=== PATIENT | female | born 2000 | race Caucasian/White ===

== ENCOUNTER 2018-01-31 17:52 | Emergency (ER) | payer SELFPAY ==
[~2018-01-31] VITALS: Ht 167.6 cm; Wt 50.8 kg
[~2018-01-31 17:52] MED LIST: AMOX500C2 PO
--- OUTSIDE RECORDS SUMMARY | 2018-01-31 17:57 | XMS REPORT | Continuity of Care Document ---
Author Author [facility] of [facility] Address Unknown Phone Unavailable Allergies There is no data. Medications There is no data. Problems Date Dx Coded Attending Type Code Diagnosis Diagnosed By 12/12/2011 BARI CAMACHO MD V05.4 VARICELLA DX 12/12/2011 BARI CAMACHO MD V06.1 TDAP DX 12/12/2011 V05.4 VARICELLA DX 12/12/2011 V06.1 TDAP DX 12/12/2011 YURI KESSLER MD V05.4 VARICELLA DX 12/12/2011 YURI KESSLER MD V06.1 TDAP DX 12/12/2011 RAISA SANTIAGO APRNYL A V05.4 VARICELLA DX 12/12/2011 PAMELA DENG GERMAINE A V06.1 TDAP DX 12/12/2011 PAMELA DENG GERMAINE A V05.4 VARICELLA DX 12/12/2011 PAMELA DENG, GERMAINE A V06.1 TDAP DX 01/01/2012 BARI CAMACHO MD 132.0 PEDICULUS CAPITIS (HEAD LOUSE) 01/01/2012 132.0 PEDICULUS CAPITIS (HEAD LOUSE) 01/01/2012 YURI KESSLER MD 132.0 PEDICULUS CAPITIS (HEAD LOUSE) 01/01/2012 GERMAINE SANTIAGO APRN A 132.0 PEDICULUS CAPITIS (HEAD LOUSE) 01/01/2012 RAISA SANTIAGO APRNYL A 132.0 PEDICULUS CAPITIS (HEAD LOUSE) 07/06/2012 924.20 CONTUSION OF FOOT 07/06/2012 YURI KESSLER MD 924.20 CONTUSION OF FOOT 07/06/2012 GERMAINE SANTIAGO APRN 924.20 CONTUSION OF FOOT 07/06/2012 GERMAINE SANTIAGO APRN A 924.20 CONTUSION OF FOOT 03/29/2013 YURI KESSLER MD 465.9 UPPER RESPIRATORY INFECTION 03/29/2013 GERMAINE SANTIAGO APRN 465.9 UPPER RESPIRATORY INFECTION 03/29/2013 GERMAINE SANTIAGO APRN 465.9 UPPER RESPIRATORY INFECTION 12/03/2013 GERMAINE SANTIAGO APRN V70.3 SPORTS PHYSICAL 12/03/2013 GERMAINE SANTIAGO APRN V70.3 SPORTS PHYSICAL 01/19/2014 GERMAINE SANTIAGO APRN 784.0 HEADACHE 01/19/2014 GERMAINE SANTIAGO APRN 959.01 OTHER AND UNSPECIFIED INJURY TO HEAD Procedures Code [place] [address] XRAY FOOT RIGHT 2 VIEWS 07/08/2012 31882 VISUAL ACUITY SCREEN 12/05/2013 Results There is no data. Encounters ACCT No. Visit Date/Time Discharge Status Pt. Type Provider Facility Loc./Unit Complaint [id number] 01/19/2014 13:43:00 01/19/2014 23:59:59 CLS Outpatient GERMAINE SANTIAGO APRN [id number] 12/03/2013 11:20:00 12/03/2013 23:59:59 CLS Outpatient GERMAINE SANTIAGO APRN [id number] 03/29/2013 14:55:00 03/29/2013 23:59:59 CLS Outpatient YURI KESSLER MD [id number] 07/06/2012 15:48:00 07/06/2012 23:59:59 CLS Outpatient [id number] 01/01/2012 10:50:00 01/01/2012 23:59:59 CLS Outpatient BARI CAMACHO MD [id number] 07/25/2013 00:10:00 07/25/2013 02:27:00 DIS Emergency
--- NOTE | 2018-01-31 18:20 | ED EENT ---
History of Present Illness General Chief Complaint: Cough/Cold/Flu Symptoms Stated Complaint: SORE THROAT,FEVER,BODY ACHE Nursing Triage Note: ARRIVED VIA AMB TO ROOM 05. COMPLAINS OF BODY ACHES, SORE THROAT, AND FEVER. STATES SHE TOOK TYLENOL AT 0700 TODAY. Source: patient History of Present Illness Date Seen by Provider: Jan 31, 2018 Time Seen by Provider: 18:06 Initial Comments PT ARRIVES VIA POV FROM HOME C/O SORE THROAT SINCE Friday01/29/18 C/O SUBJECTIVE FEVER, SWEATS, CHILLS C/O BODY ACHES NO NASAL CONGESTION OR COUGH NO NAUSEA/VOMITING NO KNOWN SICK CONTACTS TOOK TYLENOL COLD AND SINUS AT 0700 THIS AM PCP: STEPHANIE Allergies and Home Medications Allergies Coded Allergies: No Known Drug Allergies (Unverified , 07/25/13) Home Medications Amoxicillin 500 Mg Capsule, 2 EACH PO BID Prescribed by: KATHLEEN WELLS on 07/25/13 0220 Patient Home Medication List Home Medication List Reviewed: Yes Review of Systems Review of Systems Constitutional: see HPI, chills, diaphoresis, fever Eyes: No Symptoms Reported Ears: No Symptoms Reported Nose: no symptoms reported Mouth: no symptoms reported Throat: see HPI, pain; denies neck stiffness, denies muffled; painful swallowing; denies difficulty with fluids Respiratory: no symptoms reported Cardiovascular: no symptoms reported Gastrointestinal: no symptoms reported : No LMP: Jan 10, 2018 (NO CONTROL) Musculoskeletal: see HPI, other (BODY ACHES) Past Lowwhvz-Akyavr-Ahbmdw Hx Patient Social History Alcohol Use: Denies Use Recreational Drug Use: No Smoking Status: Current Everyday Smoker (1 PPD) Type Used: Cigarettes Recent Foreign Travel: No Contact w/Someone Who Travel: No Recent Infectious Disease Expo: No Past Medical History Surgeries: No Respiratory: No Cardiac: No Neurological: No Reproductive Disorders: No Sexually Transmitted Disease: No HIV/AIDS: No Gastrointestinal: No Musculoskeletal: No Endocrine: No HEENT: No Cancer: No Psychosocial: No Integumentary: No Blood Disorders: No Adverse Reaction/Blood Tranf: No Physical Exam Vital Signs Vital Signs - First Documented 01/31/18 17:59 Temp 100.7 Pulse 104 Resp 16 B/P (MAP) 132/78 O2 Delivery Room Air Height, Weight, BMI Height: 5'6.00" Weight: 112lbs. oz. 50.271726fk; 14.06 BMI Method:Stated General Appearance: no apparent distress, thin Eyes: bilateral eye normal inspection, bilateral eye PERRL, bilateral eye EOMI Ears: bilateral ear auricle normal, bilateral ear canal normal Nose: normal inspection Mouth/Throat: tonsillar exudate, tonsillar swelling (+2$); No trismus, No uvula swelling, No voice changes Neck: non-tender, full range of motion, supple, normal inspection, lymphadenopathy (R) (MILD ANTERIOR), lymphadenopathy (L) (MILD ANTERIOR) Cardiovascular: normal peripheral pulses, regular rate, rhythm, no edema, no JVD, no murmur Respiratory: normal breath sounds, no respiratory distress, no accessory muscle use Gastrointestinal: normal bowel sounds, non tender, soft, no organomegaly 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 Referrals: [facility] (PCP/Family) Primary Care Physician Patient Instructions: Sore Throat, Adult (DC) Add. Discharge Instructions: TYLENOL 1 GRAM AND MOTRIN 800 MG 4 TIMES A DAY FOR PAIN OR FEVER FREQUENT SALT WATER GARGLES LOTS OF FLUIDS FOLLOW UP WITH YOUR DR IN 2-3 DAYS IF NO BETTER All discharge instructions reviewed with patient and/or family. Voiced understanding. Scripts Amoxicillin (Amoxicillin) 875 Mg Tablet 875 MG PO BID for INFECTION, #20 TAB Prov: SIRENA GÓMEZ DO 01/31/18 Work/School Note: Work Release Form Date Seen in the Emergency Department: Jan 31, 2018 Return to Work: Feb 02, 2018 Restrictions: No Restrictions SIRENA GÓMEZ DO Jan 31, 2018 18:19
[2018-01-31] MEDS ORDERED: RX-AMOXICILLIN 250 MG CAP PPK #3 PO STA (18:37)
[2018-01-31] MEDS ORDERED: AMOX875T2 PO (18:42)
[2018-01-31] MEDS ORDERED: RX-AMOXICILLIN 500 MG CAP #3 PPK PO ONE (18:59)
[2018-01-31] MEDS ORDERED: RX-AMOXICILLIN 500 MG CAP #3 PPK PO STA (19:09)
== END 2018-01-31 19:04 | disposition home or self-care (01) ==
LOC: EDUNIT# 17:52 → ER 17:53
DX: J02.9 Acute pharyngitis, unspecified (principal); F17.210 Nicotine dependence, cigarettes, uncomplicated
CPT/HCPCS: 87430; 99284

== ENCOUNTER 2018-12-21 21:41 | Emergency (ER) | payer MEDICAID ==
[~2018-12-21] VITALS: Ht 170.1 cm; Wt 76.6 kg
[~2018-12-21 21:41] MED LIST changes: +AMOX875T2 PO
--- NOTE | 2018-12-21 22:07 | ED Lower Extremity ---
General Chief Complaint: Laceration Stated Complaint: FALL - LEFT LEG LAC Source: patient History of Present Illness Date Seen by Provider: Dec 21, 2018 Time Seen by Provider: 21:55 Initial Comments PT ARRIVES VIA POV FROM HOME STATES SHE TRIPPED AND FELL, LANDING ON KNEES ON A LARGE METAL FLOOR VENT--OCCURRED 20 MINUTES AGO HAS LACERATION TO LEFT KNEE NO OTHER INJURIES OR AREAS OF PAIN PT IS 36 WEEKS --EDC 01/10/29 NO ABDOMINAL INJURY OR PAIN NO VAGINAL BLEEDING. 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 Jennifer KINGSLEY Allergies and Home Medications Allergies Coded Allergies: No Known Drug Allergies (Unverified , 07/25/13) Home Medications Amoxicillin 500 Mg Capsule, 2 EACH PO BID Prescribed by: KATHLEEN WELLS on 07/25/13 0220 Amoxicillin 875 Mg Tablet, 875 MG PO BID Prescribed by: SIRENA GÓMEZ on 01/31/18 1842 Cephalexin 500 Mg Capsule, 500 MG PO QID Prescribed by: SIRENA GÓMEZ on 12/21/18 2300 Patient Home Medication List Home Medication List Reviewed: Yes Review of Systems Constitutional: no symptoms reported : Yes Expected Date of Delivery: Jan 10, 2019 Musculoskeletal: see HPI Skin: see HPI Psychiatric/Neurological: No Symptoms Reported Past Qrqwuoc-Kaypwr-Xrnfmz Hx Patient Social History Smoking Status: Current Everyday Smoker Type Used: Cigarettes Recent Foreign Travel: No Contact w/Someone Who Travel: No Immunizations Up To Date Tetanus Booster (TDap): Unknown Past Medical History Surgeries: No Respiratory: No Cardiac: No Neurological: No Reproductive Disorders: No Sexually Transmitted Disease: No HIV/AIDS: No Gastrointestinal: No Musculoskeletal: No Endocrine: No HEENT: No Cancer: No Psychosocial: No Integumentary: No Blood Disorders: No Adverse Reaction/Blood Tranf: No Physical Exam Vital Signs Vital Signs - First Documented 12/21/18 21:50 Temp 37.7 Pulse 109 Resp 22 B/P (MAP) 149/85 Pulse Ox 98 O2 Delivery Room Air Capillary Refill : Height, Weight, BMI Height: 5'6.00" Weight: 112lbs. oz. 50.440677kv; 14.06 BMI Method:Stated General Appearance: WD/WN, no apparent distress, other (CRYING, VERY ANXIOUS) Neck: normal inspection Cardiovascular: normal peripheral pulses, regular rate, rhythm Respiratory: chest non-tender, normal breath sounds Gastrointestinal: non tender, soft, other (GRAVID UTERUS-TERM/NEAR TERM) Back: normal inspection Hips: bilateral hip non-tender, bilateral hip normal inspection Legs: bilateral leg non-tender, bilateral leg normal inspection Knees: right knee non-tender, right knee normal inspection; left knee soft tissue tenderness, left knee other (NO BONY TENDERNESS. HAS A LARGE VERY IRREGULAR, GAPING, C-SHAPED FLAP LACERATION TO LEFT KNEE, WITH SKIN NEARLY COMPLETELY AVULSED. 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, no motor/sensory deficits, alert, normal mood/affect, oriented x 3 Skin: normal color, warm/dry Procedures/Interventions Wound Location: Lower Extremities (LEFT KNEE) Wound Length (cm): 15 Wound's Depth, Shape: irregular, stellate, sub Q Wound Explored: foreign body removed (SMALL AMOUNT OF DIRT ) Irrigated w/ Saline (ccs): 2000 Betadine Prep?: No (BETASEPT) Anesthesia: Lidocaine w/ Epi (2%) Staple Repair: Stapler 35W Suture: Ethlion, Vicryl Sterile Dressing Applied?: Yes Progress WOUND PROFUSELY IRRIGATED WITH SALINE + BETASEPT DEEP LAYERS CLOSED WITH #5 SUTURES OF 3- VICRYL VERY MACERATED, STELLATE, IRREGULAR C-SHAPED FLAP/NEAR COMPLETE AVULSION--CLOSED WITH #10 SUTURES OF 4-0 ETHILON AND #10 RONEY WOUND CLEANSED AND DRESSED WITH ANTIBIOTIC OINTMENT AND STERILE GAUZE KNEE WRAPPED WITH BETHEL WRAP AND PT PLACED IN KNEE IMMOBILIZER Splinting and Joint Reduction : Pre-Proc Neuro Vasc Exam: normal Post-Proc Neuro Vasc Exam: normal Bethel wrap: Yes Immobilizers: 19 inch Knee Progress/Results/Core Measures Results/Orders My Orders Orders - SIRENA GÓMEZ DO Lidocaine/Epi 2% 1:100,000 (Xylocaine/Ep (12/21/18 22:15) Dipht,Pertuss(Acell),Tet Adult (Boostrix (12/21/18 22:15) Bethel Bandage (12/21/18 22:56) Wound Dressing-Ed (12/21/18 22:56) Knee Immobilizer (12/21/18 22:56) Cephalexin Capsule (Keflex Capsule) (12/21/18 23:15) Medications Given in ED Current Medications Medications Dose Ordered Sig/Russell Route Start Time Stop Time Status Last Admin Dose Admin Cephalexin HCl 500 mg ONCE ONCE PO 12/21/18 23:15 12/21/18 23:16 DC 12/21/18 23:15 500 MG Diphtheria/ Tetanus/Acell Pertussis 0.5 ml ONCE ONCE IM 12/21/18 22:15 12/21/18 22:16 DC 12/21/18 23:02 0.5 ML Lidocaine/ Epinephrine 20 ml ONCE ONCE INJ 12/21/18 22:15 12/21/18 22:16 DC 12/21/18 23:03 20 ML Vital Signs/I&O 12/21/18 12/21/18 21:50 23:16 Temp 37.7 37.7 Pulse 109 109 Resp 22 22 B/P (MAP) 149/85 149/85 (106) Pulse Ox 98 98 O2 Delivery Room Air Room Air Departure Impression Primary Impression: Laceration of left knee Additional Impression: Kjmksoxoso-nnjaxtmvy-szmswef (DPT) vaccination administered at current visit Disposition: 01 HOME, SELF-CARE Condition: Stable Departure-Patient Inst. Referrals: OSIRIS KINGSLEY MD NO,LOCAL PHYSICIAN (PCP) Primary Care Physician Patient Instructions: Laceration Repair With Stitches (DC), Laceration Repair With Roney (DC), Diphtheria and Tetanus Toxoids, and Acellular Pertussis Vaccine Add. Discharge Instructions: LEAVE DRESSING IN PLACE FOR 24 HOURS, THEN CLEAN TWICE A DAY WITH ANTIBACTERIAL SOAP AND WATER ON A Q-TIP, APPLY FRESH DRESSING KEEP WOUND CLEAN AND DRY WEAR KNEE IMMOBILIZER AT ALL TIMES ICE TO AREA AT 20 MINUTE INTERVALS SUTURES/RONEY OUT IN 10-14 DAYS, RETURN TO ER FOR REMOVAL All discharge instructions reviewed with patient and/or family. Voiced understanding. Scripts Cephalexin (Keflex) 500 Mg Capsule 500 MG PO QID, #40 CAP Prov: SIRENA GÓMEZ DO 12/21/18 SIRENA GÓMEZ DO Dec 21, 2018 22:07
[2018-12-21] MEDS ORDERED: LIDOCAINE/EPI 2% 1:100,00 (XYLOCAINE) 20 ML VIAL INJ ONE (22:15)
[2018-12-21] MEDS ORDERED: TETANUS,DIPTH,PERTUSS P/F (BOOSTRIX) 0.5 ML VIAL IM ONE (22:15)
[2018-12-21] MEDS ORDERED: RX-CEPHALEXIN 250MG/5ML (KEFLEX) 100ML BTL PO STA (22:56)
[2018-12-21] MEDS ORDERED: CEPH-507 PO (23:00)
[2018-12-21] MEDS ORDERED: CEPHALEXIN 250 MG (KEFLEX) CAP PO ONE (23:15)
[2018-12-21 23:16] VITALS: BP 149/85
== END 2018-12-21 23:16 | disposition home or self-care (01) ==
LOC: EDUNIT# 21:41 → ER 21:42
DX: O9A.213 Injury, poisoning and certain other consequences of external causes complicating pregnancy, third trimester (principal); S81.012A Laceration without foreign body, left knee, initial encounter; Z23 Encounter for immunization; O99.333 Smoking (tobacco) complicating pregnancy, third trimester; F17.210 Nicotine dependence, cigarettes, uncomplicated; Z3A.38 38 weeks gestation of pregnancy; W01.118A Fall on same level from slipping, tripping and stumbling with subsequent striking against other sharp object, initial encounter
CPT/HCPCS: 12002; 90471; 90715

== ENCOUNTER 2019-01-04 22:35 | Outpatient (CLI) | payer MEDICAID ==
[~2019-01-04] VITALS: Ht 170.2 cm; Wt 76.8 kg
[~2019-01-04 22:35] MED LIST changes: +CEPH-507 PO
--- NOTE | 2019-01-04 22:40 | NUR ---
SARAH SAUCEDA presented to unit via W/C from home/ED, accompanied by sister, friends, with c/o POSS RUPTURE OF MEMBRANES. SARAH SAUCEDA weighed, gowned, voided, and to bed. EFHM and TOCO applied, VS taken. SARAH SAUCEDA oriented to bed controls, call light, TV, heat, and A/C controls.
[2019-01-04 22:50] VITALS: BP 134/68
[2019-01-04 23:41] LABS: BILIRUBIN,URINE NEGATIVE (NEGATIVE); CLARITY,URINE CLEAR; COLOR,URINE YELLOW; GLUCOSE, URINE (UA) NEGATIVE (NEGATIVE); KETONES,URINE NEGATIVE (NEGATIVE); LEUKOCYTE ESTERASE ,URINE NEGATIVE (NEGATIVE); NITRITE,URINE NEGATIVE (NEGATIVE); PH,URINE 6.5 (5-9); PROTEIN,URINE NEGATIVE (NEGATIVE); UROBILINOGEN,URINE NORMAL (NORMAL)
[2019-01-04 23:51] LABS: BACTERIA,URINE TRACE /HPF; RBC,URINE 0-2 /HPF; WBC,URINE 0-2 /HPF
[2019-01-05] MEDS ORDERED: PNV91TAB6 PO (00:09)
--- NOTE | 2019-01-05 00:24 | NUR ---
D/C instructions given & explained per Jennifer Jennings RN, pt. verbalized understanding & signed, copy of D/C instructions to pt. Pt. left [facility] ambulatory escorted by sister & friends, to home via private vehicle.
--- NOTE | 2019-01-05 08:39 | Physician Query-Final Dx ---
ISAAC WARREN 01/05/19 0838: Clinic Account Progress/Dx Physician Query: Please give diagnosis Please include # weeks gestation Date of Service Jan 04, 2019 at 22:35 PHU CALVIN DO 01/05/19 0850: Clinic Account Progress/Dx DIAGNOSIS: Diagnosis 39w3d contractions not in active labor ISAAC WARREN Jan 05, 2019 08:38 PHU CALVIN DO Jan 05, 2019 08:50
== END 2019-01-05 00:24 | disposition home or self-care (01) ==
LOC: LDRP 22:35 → WSo 22:35
PROVIDERS: ATTEND Family Medicine
DX: O62.9 Abnormality of forces of labor, unspecified (principal); Z3A.39 39 weeks gestation of pregnancy
CPT/HCPCS: 81000; 99213

== ENCOUNTER 2019-01-06 07:34 | Inpatient (IN) | payer MEDICAID ==
[2019-01-06] VITALS (15 sets, daily range): BP systolic 105–158; BP diastolic 61–96
--- NOTE | 2019-01-06 07:25 | NUR ---
Arrived to unit ambulates self accompanied by sister. Pt c/o contractions and spotting. Wt obtained and to room 319. Gowned and urine sample obtained. To bed and oriented to room, call light and surroundings. monitors on.
[~2019-01-06 07:34] MED LIST changes: +PNV91TAB6 PO
[2019-01-06] MEDS ORDERED: D5 LR IV SOLUTION 1,000 ML IV ONE (07:49)
[2019-01-06] MEDS ORDERED: OXYTOCIN/NORMAL SALINE 500 ML IV ONE (07:49)
[2019-01-06] MEDS ORDERED: D5 LR IV SOLUTION 1,000 ML IV SCH (07:58)
[2019-01-06] MEDS ORDERED: MINERAL OIL CONCENTRATE 99.9% 15 ML UDC TOP PRN (08:00)
[2019-01-06 08:10] LABS: BASOPHILS % (AUTO) 0 % (0-10); EOSINOPHILS % (AUTO) 0 % (0-10); HEMATOCRIT 33 % (35-52); HEMOGLOBIN 11.2 G/DL (11.5-16.0); LYMPHOCYTES # (AUTO) 2.1 X 10^3 (1.0-4.0); LYMPHOCYTES % (AUTO) 17 % (12-44); MEAN CORPUSCULAR HEMOGLOBIN 30 PG (25-34); MEAN CORPUSCULAR HGB CONC 34 G/DL (32-36); MEAN CORPUSCULAR VOLUME 90 FL (80-99); MEAN PLATELET VOLUME 11.2 FL (7.4-10.4); MONOCYTES # (AUTO) 0.7 X 10^3 (0.0-1.0); MONOCYTES % (AUTO) 5 % (0-12); NEUTROPHILS # (AUTO) 9.7 X 10^3 (1.8-7.8); NEUTROPHILS % (AUTO) 78 % (42-75); PLATELET COUNT 230 10^3/uL (130-400); RED CELL DISTRIBUTION WIDTH 12.8 % (10.0-14.5); WHITE BLOOD COUNT 12.5 10^3/uL (4.3-11.0)
[2019-01-06] MEDS ORDERED: SUFENTA 0.6MCG/ML BUPIVA 0.125 0 ML ONE (08:12)
--- NOTE | 2019-01-06 08:57 | NUR ---
spontaneous vaginal delivery of placenta with cord attached. perineum examined per dr rodgers, no repairs needed. fundal massage by this rn fundus boggy 1 below umbilicus with moderate/heavy rubra noted. 0907 IV restarted in right ac and pitocin started at 999ml/hr as ordered. 0910 ffu/1 with moderate rubra noted 0916 ffu/1 with moderate rubra noted, 3-4 3cm clots expressed and rubra slowed. pericare and pad under pt. pt assisted out of lithotomy to sf position and plan of care reviewed with pt and family members at bedside. 0931 ffu/1 with lt-mod rubra noted 1 2cm clot expressed. vss 0946 ffu/1 with lt-mod rubra noted, no clots expressed. vss 1001 ffu/1 with lt-mod rubra noted, no clots expressed. vss 1015 ffu/0 with lt-mod rubra noted no clots expressed. vss.
[2019-01-06] MEDS: OXYTOCIN/NORMAL SALINE 500 ML IV SCH ×2 (09:07→09:55)
--- NOTE | 2019-01-06 09:08 | History & Physical-OB ---
OB - Chief Complaint & HPI Date/Time Date of Admission: Date of Admission: Jan 06, 2019 at 07:53 Date seen by a Provider: Jan 06, 2019 Time Seen by a Provider: 08:40 Chief Complaint/History OB-Reason for Admission/Chief: Onset of Labor Hx : 1 Expected Date of Delivery: Jan 10, 2019 Gestational Age in Weeks: 39 Gestational Age in Days: 3 Admission Nurse Assessment Rev: Yes Allergies and Home Medications Allergies Coded Allergies: No Known Drug Allergies (Unverified , 07/25/13) Home Medications Pnv95/Ferrous Fumarate/FA 1 Each Tablet, 1 EACH PO DAILY, (Reported) Patient Home Medication List Home Medication List Reviewed: Yes OB - History Hx of Present Ultrasounds: Normal mid trimester US Obstetrical Complications: None Medical Complications: None Obstetrical History Hx : 1 Delivery History Hx Blood Disorders: No Adverse Rxn to Tranfusion: No Patient Past Medical History previously healthy Social History/Family History HIV/AIDS: No Recent Infectious Disease Expo: No Sexually Transmitted Disease: No Immunizations Hepatitis A: No Hepatitis B: No Tetanus Booster (TDap): Unknown OB - Admission Exam Physical Exam Vitals: Vital Signs 01/06/19 07:42 Temp 36.1 Pulse 75 Resp 18 B/P (MAP) 136/83 (100) O2 Delivery Room Air HEENT: NCAT Heart: Rhythm Normal Lungs: Clear Abdomen: Gravid Extremities: Normal Reflexes: Normal Cervical Dilatation: 10cm Effacement: 100% Station: +1 Membranes: Ruptured Amniotic Fluid: Clear Heart Rate: 120's Accelerations: Accelerations Present Decelerations: Variable Decelerations Short Term Variability: Present Shelter Variability: Average (6-25) Contractions on Admission: < 5 Minutes Apart Intensity: Firm Labs Laboratory Tests Test 01/06/19 07:54 Range/Units White Blood Count 12.5 H 4.3-11.0 10^3/uL Red Blood Count 3.71 L 4.35-5.85 10^6/uL Hemoglobin 11.2 L 11.5-16.0 G/DL Hematocrit 33 L 35-52 % Mean Corpuscular Volume 90 80-99 FL Mean Corpuscular Hemoglobin 30 25-34 PG Mean Corpuscular Hemoglobin Concent 34 32-36 G/DL Red Cell Distribution Width 12.8 10.0-14.5 % Platelet Count 230 130-400 10^3/uL Mean Platelet Volume 11.2 H 7.4-10.4 FL Neutrophils (%) (Auto) 78 H 42-75 % Lymphocytes (%) (Auto) 17 12-44 % Monocytes (%) (Auto) 5 0-12 % Eosinophils (%) (Auto) 0 0-10 % Basophils (%) (Auto) 0 0-10 % Neutrophils # (Auto) 9.7 H 1.8-7.8 X 10^3 Lymphocytes # (Auto) 2.1 1.0-4.0 X 10^3 Monocytes # (Auto) 0.7 0.0-1.0 X 10^3 Eosinophils # (Auto) 0.0 0.0-0.3 10^3/uL Basophils # (Auto) 0.0 0.0-0.1 10^3/uL OB - Assessment/Plan/Diagnosis Assessment Assessment: active labor Admission Dx Normal labor. Admission Status: Inpatient Order (span 2 midnights) Reason for Inpatient Admission: Normal labor Plan Plan: Expectant Management OSIRIS KINGSLEY MD Jan 06, 2019 09:08
--- NOTE | 2019-01-06 09:10 | OB Labor & Delivery Record ---
Vag Delivery Note Vag Delivery Note Date of Delivery: 01/06/19 Preoperative Diagnosis: Nicole Otto is a (18 /Para 1 / ,Gestational Age (wks)39with [3 days] Postoperative Diagnosis: Same Surgeon: OSIRIS KINGSLEY Recruiting Operations Consultant: [none] Anesthesia: [none] Delivery Type: [] Findings: [] Viable [female] infant, apgars [8/9], weight [6 pounds 10 ounces] Lacerations: Intact placenta with 3 vessel cord. One nuchal cord. Estimated Blood Loss: [250] ml Complications: None Condition: Stable Description of Procedure: The patient is a 18 year old female who presented [in labor]. She was admitted and informed consent was obtained. Her labor course was remarkable for [spotty care] She progressed to complete dilatation and began to push. She was then set up for delivery. The 's head was delivered atraumatically in the [OA] position. The shoulders and remainder of the infant's body were then delivered without difficulty. Upon delivery, the head was held below the level of the perineum and the mouth and nares were bulb suctioned. The cord was doubly clamped and cut after 60 seconds and was placed on maternal abdomen. An intact placenta with 3-vessel cord delivered via Hannah and there was found to be minimal bleeding.~ Vigorous fundal massage was performed and the fundus was found to be firm. IV oxytocin was given. Examination of the vagina and perineum revealed no lacerations. Following the repair, sponge, instrument and needle counts were correct. Mom and baby were both in stable condition in the labor suite. Vitals - Labs Vital Signs - I&O Vital Signs Date Time Temp Pulse Resp B/P (MAP) Pulse Ox O2 Delivery O2 Flow Rate FiO2 01/06/19 07:42 36.1 75 18 136/83 (100) Room Air Labs Laboratory Tests 01/06/19 07:54: White Blood Count 12.5H, Red Blood Count 3.71L, Hemoglobin 11.2L, Hematocrit 33L , Mean Corpuscular Volume 90, Mean Corpuscular Hemoglobin 30, Mean Corpuscular Hemoglobin Concent 34, Red Cell Distribution Width 12.8, Platelet Count 230, Mean Platelet Volume 11.2H, Neutrophils (%) (Auto) 78H, Lymphocytes (%) (Auto) 17, Monocytes (%) (Auto) 5, Eosinophils (%) (Auto) 0, Basophils (%) (Auto) 0, Neutrophils # (Auto) 9.7H, Lymphocytes # (Auto) 2.1, Monocytes # (Auto) 0.7, Eosinophils # (Auto) 0.0, Basophils # (Auto) 0.0 OSIRIS KINGSLEY MD Jan 06, 2019 09:10
[2019-01-06] MEDS ORDERED: TETANUS,DIPTH,PERTUSS P/F (BOOSTRIX) 0.5 ML VIAL IM ONE (09:15)
[2019-01-06] MEDS ORDERED: BENZOCAINE/MENTHOL (DERMOPLAST) 56 ML CAN TP PRN (09:15)
[2019-01-06] MEDS ORDERED: MEASLES,MUMPS,RUBELLA 1 EA INJ SQ ONE (09:15)
[2019-01-06] MEDS ORDERED: WITCH HAZEL(TUCKS) 40 EA JAR TOP PRN (09:15)
[2019-01-06] MEDS: IBUPROFEN 600 MG (MOTRIN) TAB PO SCH ×2 (11:04→17:46)
--- NOTE | 2019-01-06 11:15 | NUR ---
pericare, pad changed. underwear on. ffu/0 with lt-mod rubra noted, no clots expressed. VSs. plan of care reviewed with pt. pt ambulates self to room 307. Oriented to room, call light and surroundings. up in room. fresh ice water to bedside.
[2019-01-06] MEDS: ACETAMINOPHEN 500 MG TAB (TYLENOL) PO SCH ×2 (13:59→20:39)
[2019-01-06] MEDS ORDERED: CATHETER FLUSH 10 ML SYR IV SCH ×2 (14:00)
--- NOTE | 2019-01-06 19:20 | NUR ---
REPORT RECEIVED AND CARES RESUMED BY THIS NURSE.
[2019-01-06] MEDS: DOCUSATE SODIUM 100 MG (COLACE) CAP PO SCH (20:39)
--- NOTE | 2019-01-06 21:35 | NUR ---
INITIAL SHIFT ASSESSMENT DONE. VSS. PT DENIES ANY NEEDS AT THIS TIME.
--- NOTE | 2019-01-07 | NUR ---
PT AMB IN [place]. DENIES ANY NEEDS.
--- NOTE | 2019-01-07 02:55 | NUR ---
PT AMB IN [place] TO VISIT FRIEND IN ANOTHER ROOM.
--- NOTE | 2019-01-07 03:15 | NUR ---
PT REPORTS HAVING BREASTFED EARLIER WHEN SHE WOULDN'T TAKE A BOTTLE. INTENDS TO TRY TO BREASTFEED AGAIN.
[2019-01-07] MEDS: ACETAMINOPHEN 500 MG TAB (TYLENOL) PO SCH ×2 (04:40→12:37)
--- NOTE | 2019-01-07 04:40 | NUR ---
PT HAS FALLEN ASLEEP WITH IN ARMS. INFANT MOVED TO OPEN CRIB. PT CONT TO REST SOUNDLY.
--- NOTE | 2019-01-07 06:20 | NUR ---
LAB IN ROOM FOR AM LABS. WILL ADMINISTER MOTRIN WHEN LAB FINISHED.
[2019-01-07] MEDS: IBUPROFEN 600 MG (MOTRIN) TAB PO SCH ×3 (06:25→12:37)
[2019-01-07 06:48] LABS: BASOPHILS % (AUTO) 0 % (0-10); EOSINOPHILS # (AUTO) 0.1 10^3/uL (0.0-0.3); EOSINOPHILS % (AUTO) 1 % (0-10); HEMATOCRIT 26 % (35-52); HEMOGLOBIN 8.7 G/DL (11.5-16.0); LYMPHOCYTES # (AUTO) 2.3 X 10^3 (1.0-4.0); LYMPHOCYTES % (AUTO) 28 % (12-44); MEAN CORPUSCULAR HEMOGLOBIN 30 PG (25-34); MEAN CORPUSCULAR HGB CONC 34 G/DL (32-36); MEAN CORPUSCULAR VOLUME 91 FL (80-99); MEAN PLATELET VOLUME 11.1 FL (7.4-10.4); MONOCYTES # (AUTO) 0.5 X 10^3 (0.0-1.0); MONOCYTES % (AUTO) 6 % (0-12); NEUTROPHILS # (AUTO) 5.2 X 10^3 (1.8-7.8); NEUTROPHILS % (AUTO) 65 % (42-75); PLATELET COUNT 156 10^3/uL (130-400); RED CELL DISTRIBUTION WIDTH 12.9 % (10.0-14.5); WHITE BLOOD COUNT 8.1 10^3/uL (4.3-11.0)
[2019-01-07 07:31] VITALS: BP 135/73
[2019-01-07] MEDS: DOCUSATE SODIUM 100 MG (COLACE) CAP PO SCH (08:33)
[2019-01-07] MEDS ORDERED: FERROUS SULF 325 MG (IRON) TAB PO SCH (09:45)
--- NOTE | 2019-01-07 12:37 | Progress Note ---
Subjective Subjective/Events-last exam Doing well. Has decided to breast feed. Will be going to [place] to stay with her mom at [place]. Objective Exam Last Set of Vital Signs Vital Signs Date Time Temp Pulse Resp B/P (MAP) Pulse Ox O2 Delivery O2 Flow Rate FiO2 01/07/19 07:31 36.5 70 18 135/73 (93) 98 Room Air Capillary Refill : I&O Intake and Output 01/07/19 00:00 Intake Total 1650 ml Balance 1650 ml Intake IV Total 1650 ml Daily Weight Change No General: Alert, Oriented X3, Cooperative Psych/Mental Status: Mood NL Results/Procedures Lab Laboratory Tests 01/07/19 06:20: White Blood Count 8.1, Red Blood Count 2.86L, Hemoglobin 8.7#L, Hematocrit 26L, Mean Corpuscular Volume 91, Mean Corpuscular Hemoglobin 30, Mean Corpuscular Hemoglobin Concent 34, Red Cell Distribution Width 12.9, Platelet Count 156, Mean Platelet Volume 11.1H, Neutrophils (%) (Auto) 65, Lymphocytes (%) (Auto) 28, Monocytes (%) (Auto) 6, Eosinophils (%) (Auto) 1, Basophils (%) (Auto) 0, Neutrophils # (Auto) 5.2, Lymphocytes # (Auto) 2.3, Monocytes # (Auto) 0.5, Eosinophils # (Auto) 0.1, Basophils # (Auto) 0.0 Assessment/Plan Assessment/Plan Assessment & Plan PPD #1 s/p anemia - asymptomatic. Start iron po. Routine care. Anticipate [place] home tomorrow. Clinical Quality Measures DVT/VTE Risk/Contraindication: Risk Factor Score Per Nursin RFS Level Per Nursing on Admit: 1=Low/No VTE PPX PHU CALVIN DO Jan 07, 2019 12:37
--- NOTE | 2019-01-07 12:48 | NUR ---
Report to Kavita Johnson RN
[2019-01-07 13:19] VITALS: BP 127/73
--- NOTE | 2019-01-07 14:55 | NUR ---
PT UP VISITING FRIENDS IN RM 311, DENIES ANY NEEDS AT THIS TIME.
--- NOTE | 2019-01-07 15:06 | NUR ---
PT AMBULATES OFF UNIT ACC BY FRIEND.
--- NOTE | 2019-01-07 16:26 | NUR ---
DISCHARGE PAPERS PROVIDED AND REVIEWED WITH PT, PT VERBALIZES UNDERSTANDING AND DENIES ANY QUESTIONS AT THIS TIME. PAPER SIGNED.
--- NOTE | 2019-01-07 16:30 | NUR ---
PT DISCHARGED FROM -[facility] TO PERSONAL AUT[facility] VIA AMBULATORY IN STABLE CONDITION ACC BY TECH. SUYAPA
--- NOTE | 2019-01-08 09:53 | Short Stay Summary ---
Discharge Summary Hospital Course Final Diagnosis: see hospital course Hospital Course Date of Admission: Jan 06, 2019 at 07:53 Admission Diagnosis : at 39w - [facility] Family Physician/Provider: Annalise Fatima MD Date of Discharge: 01/08/19 Discharge Diagnosis: s/p at 39wk Hospital Course: Routine course Labs and Pending Lab Test: Home Meds Active Reported Vitamin Tablet (Pnv95/Ferrous Fumarate/FA) 1 Each Tablet 1 Each PO DAILY Assessment/Pt Instructions Follow up with Dr. Fatima in 6 weeks Discharge Physical Examination General Appearance: Alert, Oriented X3, Cooperative Psych/Mental Status: Mood NL Allergies: Coded Allergies: No Known Drug Allergies (Unverified , 07/25/13) Discharge Summary Date of Admission Jan 06, 2019 at 07:53 Date of Discharge Jan 07, 2019 at 16:30 Discharge Date: Jan 07, 2019 Clinical Quality Measures DVT/VTE Risk/Contraindication: Risk Factor Score Per Nursin RFS Level Per Nursing on Admit: 1=Low/No VTE PPX PHU CALVIN DO Jan 08, 2019 09:53
== END 2019-01-07 16:30 | disposition home or self-care (01) | DRG 807 ==
LOC: WSo 07:34 → LDRP 07:34 → WSo 07:52 → LDRP 07:53
PROVIDERS: ADMIT Family Medicine; ATTEND Family Medicine
PROC: 10E0XZZ Delivery of Products of Conception, External Approach (ICD-10-PCS; principal; 2019-01-06)
DX: O69.81X0 Labor and delivery complicated by cord around neck, without compression, not applicable or unspecified (principal); O90.81 Anemia of the puerperium; Z3A.39 39 weeks gestation of pregnancy; Z37.0 Single live birth
CPT/HCPCS: 36415; 81000; 85025; 86850; 86900; 86901; 99212; 99213